=== PATIENT | female | born 1980 | race Caucasian/White ===

== ENCOUNTER 2024-06-13 06:01 | Day surgery (SDC) | payer BC, SELFPAY ==
[2024-06-13] VITALS (14 sets, daily range): BP systolic 100–124; BP diastolic 58–85; PULSE 58–88; RESP 16–18; TEMP 36.2–36.9; O2SAT 98–100; BMI 25.7
--- OUTSIDE RECORDS SUMMARY | 2024-06-13 06:03 | XMS_ITS | Clinical Summary ---
[facility] Organization [facility] Address [address] [place] [address] Care Team Providers Care Historiography Teacher Name Role Phone Tiffani Lora MD Primary Care Provider Source Comments You are receiving this document as you are listed as the primary care provider,follow-up provider, or the patient has been referred to you for consultation.This is in compliance with the Medicare and[facility] EHR Incentive Program,which states Providers who transition their patient to another setting of careor provider of care or refers their patient to another provider of care shouldprovide summary care record for each transition of care or referral. Redu.us Allergies Active Allergy Reactions Criticality Noted Date Comments Cephalexin Hives High 05/08/2021 Penicillins Other, see comments 05/08/2021 Throat swelling Oxycodone-Acetaminophen Other, see comments flushing Sulfa Antibiotics Hives High 05/08/2021 Medications Medication Sig Dispensed Refills Start Date End Date Status loratadine (CLARITIN) 10 MG tablet Take 1 Tablet (10 mg) by mouth daily as needed. Active Immunizations Name Administration Dates Next Due Flu Vac (3+ yrs) 03/20/2013,02/09/2012 Flu Vac Preserv Free (3+yrs) 02/16/2011 Influenza IIV4 (Quadrivalent ) 0.5mL (03288) 03/16/2022,02/20/2021,02/16/2019, 018,01/21/2017,04/01/2015,01/22/2014 MMR 03/07/2017 Pfizer Monovalent 12+ Purple Top 11/18/2020,10/02 Tdap 01/07/2017,06/12/2013 Social History Tobacco Use Types Packs/Day Years Used Date Smoking Tobacco: Never Assessed Sex and Gender Information Value Date Recorded Sex Assigned at Not on file Gender Identity Not on file Sexual Orientation Not on file Last Filed Vital Signs Vital Sign Reading Time Taken Comments Blood Pressure 111/77 05/08/2021 1:09 PM FILING AND POLISHING SUPERVISOR Pulse 82 05/08/2021 1:09 PM FILING AND POLISHING SUPERVISOR Temperature 36.5 C (97.7 F) 03/16/2022 3:10 PM FILING AND POLISHING SUPERVISOR Respiratory Rate 20 05/08/2021 1:09 PM FILING AND POLISHING SUPERVISOR Oxygen Saturation 100% 05/08/2021 1:09 PM FILING AND POLISHING SUPERVISOR Inhaled Oxygen Concentration - - Weight - - Height - - Body Mass Index - - Plan of Treatment Health Maintenance Due Date Last Done Comments Cervical Cancer Screening Due 1982 Hep C Screening (Preventive Services) 1982 Mammogram 1982 HIV Screening (Preventive Services) 1998 Adult Preventive Visit 2000 HepB (1) 2001 COVID-19 Vaccine (3 - season) 2024 11/18/2020, 10/28/2020 Influenza (#1) 2024 03/16/2022, 02/01, 02/16/2019, Additional history exists DTaP/Tdap/Td (3 - Tdap) 01/07/2027 01/07/2017, 06/12 Zoster/Shingles (1 of 2) 2032 HPV Vaccine Aged Out No longer eligi ble based on patient's age to complete this topic HepA Aged Out No longer eligi ble based on patient's age to complete this topic Hib Aged Out No longer eligi ble based on patient's age to complete this topic IPV (Polio) Aged Out No longer eligi ble based on patient's age to complete this topic MCV4 Aged Out No longer eligi ble based on patient's age to complete this topic Pneumococcal Aged Out No longer eligi ble based on patient's age to complete this topic Care Teams Historiography Teacher Relationship Specialty Start Date End Date Tiffani Lroa MD [address] [place] [address] PCP - General Family Practice 05/08/21
--- OUTSIDE RECORDS SUMMARY | 2024-06-13 06:03 | XMS_ITS | Clinical Summary ---
Author Organization [facility] Address [place], [place] [address] Care Team Providers Care Power Supply Engineer Name Role Phone Tiffani Lora MD Unavailable + Tiffani Lora MD Primary Care Prov ider Allergies Active Allergy Reactions Criticality Noted Date Comments Cephalexin Confusion 12/13/2006 Penicillins 09/29/2006 tightness in throat Oxycodone-Acetaminophen Headache Head Roberson Sulfa (Sulfonamide Antibiotics) Hives 09/29/2006 Medications loratadine (CLARITIN) 10 mg tablet Take 1 tablet by mouth once daily. 0 7 Active albuterol HFA (PRO-AIR; VENTOLIN; PROVENTIL) 90 mcg/actuation inhalerIndicatio ns:Post-viral reactive airway disease,Cervical cancer screening Inhale 2 Puffs by mouth 4 times daily if needed for Shortness Of Breath. 3 Each 3 5 Active doxycycline monohydrate 100 mg capsuleIndicatio ns:Paronychia of finger of right hand Take 1 Capsule (100 mg) by mouth two times daily for 7 days. 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 09/29/2006 Resolved Problems Problem Noted Date Diagnosed Date Resolved Date 08/17/2016 06/06/2024 Overview (02/18/2017): INDICATION: Dating of the . Ultrasound 08/17/2016 Technique: First trimester OB ultrasound. Findings: Living intrauterine Garica with a heart rate of 146 beats per minute. Ultrasound age 11 weeks 5 days with CLAUDIA of 08/31/2016. The left ovary measures 3.0 x 1.8 x 1.5 cm and demonstrates a probable corpus luteum cyst measuring 1.9 x 1.8 x 1.4 cm the right ovary which measures 2.5 x 1.3 x 1.2 cm demonstrates a normal sonographic appearance. Impression: Living intrauterine with ultrasound age 11 weeks 5 days and CLAUDIA of 03/03/2017. Estimated Date of Delivery: 03/05/17 Patient's last menstrual period was 05/29/2016 (exact date). Last Tdap- 01/07/17 Last Flu vaccine- 01/21/17 Allergies Allergen Reactions Keflex [Cephalexin] Confusion Pcn [Penicillins] tightness in throat Percocet [Oxycodone-Acetaminophen] Headache Head Roberson Sulfa (Sulfonamide Antibiotics) Hives Obstetric History T2 L2 SAB0 TAB0 Ectopic0 Multiple0 Live Births1 # Outcome Date GA Lbr Jeremy/2nd Weight Sex Delivery Anes PTL Lv 4 Current 3 Term 09/09/13 F Vag N MAI Name: Ghislaine 2 SAB 08/2012 1 Term 12/30/10 M Vag Name: Karson Component Latest Ref Rng & Units 08/10/2016 08/10/2016 08/10/2016 2:28 PM 2:28 PM 2:28 PM HEMOGLOBIN 12.0 - 16.0 g/dL 13.6 MCV 80 - 100 fL 93 RUBELLA IGG ANTIBODY Equivocal 0.92 (L) ANTIBODY SCREEN Negative Negative SPECIMEN EXPIRATION DATE/TIME 08/13/16 23:59 CHLAMYDIA PROBE N GONORRHOEAE PROBE GLUCOSE,GESTATIONAL 65 - 139 mg/dL PATIENT STATUS HIV-1/HIV-2 ANTIBODY Non-Reactive Non-Reactive HBSAG Nonreactive Nonreactive TREPONEMA PALLIDUM Negative Negative HEMOGLOBIN A1C MONITORING (POCT) <=6.4 % 5.0 LYME SCREEN W/REFLEX WEST BLOT Negative Negative Component Latest Ref Rng & Units 08/10/2016 11/30/2016 3:32 PM HEMOGLOBIN 12.0 - 16.0 g/dL MCV 80 - 100 fL RUBELLA IGG ANTIBODY ANTIBODY SCREEN Negative SPECIMEN EXPIRATION DATE/TIME CHLAMYDIA PROBE Negative N GONORRHOEAE PROBE Negative GLUCOSE,GESTATIONAL 65 - 139 mg/dL 117 PATIENT STATUS FASTING HIV-1/HIV-2 ANTIBODY Non-Reactive HBSAG Nonreactive TREPONEMA PALLIDUM Negative HEMOGLOBIN A1C MONITORING (POCT) <=6.4 % LYME SCREEN W/REFLEX WEST BLOT Negative Component Latest Ref Rng & Units 02/04/2017 Culture No Group B Streptococcus isolated. Past Medical History: Diagnosis Date ALLERGIC RHINITIS /Food Allergies to sugar, dairy intol. 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 4th Problems (from 08/10/16 to present) No problems associated with this episode. ABDIAS Cuellar.....02/02/2017 2:41 PM Assessment & Plan (02/04/2017 10:59 AM CDT): [facility] Please call MD when patient calls she is coming in. Signed electronically by Natasha Lora MD ......... 10:58 AM 02/04/2017 Assessment & Plan (01/21/2017 10:38 AM CDT): Tdap 01/07/2017 Flu shot 01/21/2017 Supervision of other normal 01/17/2013 05/22/2014 Overview (08/14/2013): Flu shot 03/20/2013 DTAP 06/12/13 Group B strep Negative Supervision of normal first 07/14/2010 09/16/2012 Encounters Date Type Department Care Team Description 06/09/2024 8:10 AM STEEL PICKLER Telemedicine [facility] [address] [place] [address] Lynette Moore PA Telehealth 06/09/2024 Travel 06/06/2024 7:00 AM STEEL PICKLER Office Visit [facility] [address] [place] [address] Tiffani Lora MD Anxiety; Preoperative Exam (DOS 06/13/24/Dr. Keita, Tubal ligation [facility]) 06/06/2024 Travel 06/02/2024 Travel 05/11/2024 9:00 AM STEEL PICKLER Office Visit [facility] [address] [place] [address] Tiffani Lora MD Physical (43 yo female) 05/11/2024 Travel 05/07/2024 Travel from Last 3 Months Immunizations Name Administration Dates Next Due AMB Influenza, IIV4 PF (=>6 mos Flulaval,Fluzone Fluarix)(Flu Clinic Only) 02/16/2019 Influenza, IIV3 (Age >=3 years) 03/20/20 13,02/09/2012,02/16/2011, 0,04/11/2008,02/24/2007 Influenza, IIV4 02/20/2021, 8,01/21/2017, 5,01/22/2014 MMR 03/07/2017 Td (Age >=7 Years) 05/03/1997 Tdap 01/07/2017,06/12/2013,02/24/2007 Family History Medical History Relation Name Comments Good Health Brother Diabetes Father Hyperlipidemia Father Other Maternal Grandfather old age Heart Disease Maternal Grandmother NE Diabetes Maternal Uncle one uncle wit h diabetes, one cousin, both with type II Cancer Mother melanoma Diabetes Other 1 another cousin, with type I Diabetes Paternal Aunt Heart Disease Paternal Grandfather CHF Other Paternal Grandmother old age Good Health Sister 1 Good Health Sister 2 Relation Name Status Comments Brother Father Maternal Grandfather Maternal Grandmother Maternal Uncle Mother Other 1 Other 2 cousin Paternal Aunt Paternal Grandfather Paternal Grandmother Sister 1 Sister 2 Social History Tobacco Use Types Packs/Day Years Used Date Smoking Tobacco: Never Smokeless Tobacco: Never Tobacco Cessation:Counseling Given: Yes Alcohol Use Standard Drinks/Week Comments Yes 0 (1 standard drink = 0.6 oz pur e alcohol) PHQ-2 Answer Date Recorded PHQ-2 TOTAL SCORE 0 05/11/2024 Social Connections Answer Date Recorded Do you often feel lonely or isolated from those around you? 0 05/07/2024 Financial Resource Strain Answer Date R ecorded Difficulty of Paying Living Expenses 3 05/07/2024 Difficulty of Paying Living Expenses Not on file 05/07/2024 Food Insecurity Answer Date Recorded Do you worry your food will run out before you are able to buy more? 1 05/07/2024 Transportation Needs Answer Date Record ed Does lack of transportation keep you from medica l appointments? 1 05/07/2024 Does lack of transportation keep you from work, meetings or getting things that you need? 1 05/07/2024 Housing Stability Answer Date Recorded What is your housing situation today? 1 05/07/2024 Utilities Answer Date Recorded Do you have trouble paying f or utilities (for example, heat, electricity, water, phone)? 1 05/07/2024 Comments No Sex and Gender Information Value Date Recorded Sex Assigned at Not on file Legal Sex Female 5:40 AM STEEL PICKLER Gender Identity Not on file Sexual Orientation Not on file Obstetrics History Para Term AB IAB SAB Ectopic Multiple Livin g Live Births 4 3 3 0 1 0 1 0 0 2 1 Date Outcome GA Total Labor Labor/2nd/3rd Weight Sex Type Anes PTL Mai A1 A5 Name Clin 12/30 Term M Vag Karson 09/19 13 SAB 09/09 Term F Vag N Living Ghislaine 03/06 Term 40w 1d Last Filed Vital Signs Vital Sign Reading Time Taken Comments Blood Pressure 103/64 06/06/2024 7:05 AM STEEL PICKLER Pulse 74 06/06/2024 7:05 AM STEEL PICKLER Temperature 36.6 C (97.9 F) 06/06/2024 7:05 AM STEEL PICKLER Respiratory Rate 16 04/29/2017 10:29 AM STEEL PICKLER Oxygen Saturation 100% 06/06/2024 7:05 AM STEEL PICKLER Inhaled Oxygen Concentration - - Weight 67.6 kg (149 lb) 06/06/2024 7:05 AM STEEL PICKLER Height 162.6 cm (5' 4) 06/06/2024 7:05 AM STEEL PICKLER Body Mass Index 25.58 06/06/2024 7:05 AM STEEL PICKLER Plan of Treatment Health Maintenance Due Date Last Done Comments Pneumococcal series for age 6-49 (1 of 2 - PCV) 2001 COVID-19 vaccine series ( - season) 2024 11/18/2020, 10/28/2020 Influenza for age 9-49 01/02/2024 , 02/16/2019, 03/07/2018, Additional history exists Depression screening for age 12+ 05/11/2025 05/11/2024, 06/05/2021, 08/20/2020, Additional history exists BMI (ht and wt on same day) for age 18+ 06/06/2025 06/06/2024, 05/11/2024, 05/09/2021, Additional history exists Tetanus booster 01/07/2027 01/07/2017, 06/03, 02/24/2007, Additional history exists Pap test for age 21-65 05/11/2029 , 05/11/2024, 03/13/2019, Additional history exists HIV for age 15-65 Completed 08/10/2016, , 05/08/2010 Tdap Completed 01/07/2017, 06/03, 02/24/2007 Hepatitis C screening for ag e 18-79 Completed 05/11/2024 Procedures Procedure Name Priority Date/Time Associated Diagnosis Comments [employer]RI[employer] WORKER THIN PREP PAP SCREEN IMAGED Routine 05/11/2024 10:02 AM STEEL PICKLER Screening for cervical cancer HPV HIGH RISK Routine 05/11/2024 10:02 AM STEEL PICKLER Screening for cervical cancer GLUCOSE, RANDOM Routine 05/11/2024 9:53 AM STEEL PICKLER Screening for diabetes mellitus LIPID PANEL W REFLEX MEASURED LDL Routine 05/11/2024 9:53 AM STEEL PICKLER Screening for lipoid disorders ANTI HCV Routine 05/11/2024 9:53 AM STEEL PICKLER Need for hepatitis C screening test VITAMIN D 25 (DEFICIENCY) Routine 05/11/2024 9:53 AM STEEL PICKLER Encounter for vitamin deficiency screening ANTI HIV 1/2 Routine 08/10/2016 2:28 PM CDT 11 weeks gestation of from Last 3 Months or Most Recently Relevant to Health Maintenance Results * [employer] WORK[employer] THIN PREP PAP SCREEN IMAGED [[id number]] (05/11/2024 10:02 AM STEEL PICKLER) Case Report Gynecologic Cytology Report Case: [id number] Authorizing Provider: Tiffani Lora Collected: 05/11/2024 Rose Marie Chung MD Ordering Location: [facility] Received: 05/11/[address] [place] [address] First Screen: Chris Olguin Specimen: [employer] ThinPrep Vial Screening, Cervical 05/19/2024 1:35 PM STEEL P[employer]ER [facility] INTERPRETATION/ RESULT NEGATIVE FOR INTRAEPITHELIAL LESION OR MALIGNANCY (NIL) (none) 05/19/2024 1:35 PM STEEL PICKLER [facility] LABORATORY-C ENTRAL LABORATORY IMEN ADEQUACY Satisfactory for evaluation Endocervical component present 05/19/2024 1:35 PM STEEL PICKLER [facility] LABORATORY-C ENTRAL LABORATORY HPV REQUEST HPV and PAP 05/19/2024 1:35 PM STEEL PICKLER [facility] LABORAT[facility]-C ENTRAL LABORATORY Date of LMP 04/27/2024 05/19/2024 1:35 PM STEEL PICKLER [facility]ORAT[facility]-C ENTRAL LABORATORY Last Pap Date 03/13/19 05/19/2024 1:35 PM [employer]ER [facility] Last Pap Result NIL 1:35 PM STEEL PICKLER [facility] LABORATORY Abnormal Pap or [place] Bx in last 5 years No 05/19/2024 1:35 PM STEEL PICKLER [facility] Menstrual Status Regular Periods 05/19/2024 1:35 PM STEEL PICKLER [facility] [place] Bx Done Today No 05/19/2024 1:35 PM STEEL PICKLER [facility] Additional Information None given 05/19/2024 1:35 PM STEEL PICKLER [facility] Comment: Cytology is screened at [facility] - [address], [place] [address] and [facility] - [address], [place] [address] and [facility] - [address] [place] [address] Interpreted at [facility] - [address], [place] [address] Automated Review Successful 05/19/2024 1:35 PM STEEL PICKLER [facility] Comment:Specimen processed s uccessfully by automated animal skinner device, ThinPrep Imaging System, [employer] ANCILLARY TESTING [employer] HPV Ordered, Please see separate report 05/19/2024 1:35 PM STEEL PICKLER [facility] Note The pap test is a screening technique, not a diagnostic procedure. It is used primarily to screen for squamous cancers and precursor lesions. Published studies have shown that it is subject to both false negative and false positive results. The pap test should not be used as the sole means to diagnose or exclude pre-malignant and malignant lesions. 05/19/2024 1:35 PM STEEL PICKLER [facility] Other (Cervical) Non-Blood / Unknown 05/11/2024 10:02 AM STEEL PICKLER 05/11/2024 10:02 AM STEEL PICKLER Tiffani Lora MD PATHOLOGY/CYTOLOGY Final Result [facility] [address] [place] [address], [place] * HPV HIGH RISK (05/11/2024 10:02 AM STEEL PICKLER) TYPE 16 Negative Negative 05/15/2024 3:09 PM STEEL PICKLER [facility] TYPE 18 Negative Negative 05/15/2024 3:09 PM STEEL PICKLER [facility] OTHER HIGH RISK TYPES Negative Negative 05/15/2024 3:09 PM STEEL PICKLER [facility] Other (Cervical) Non-Blood / Unknown 05/11/2024 10:02 AM STEEL PICKLER 05/11/2024 5:09 PM STEEL PICKLER Narrative [facility] - 05/15/2024 3:09 PM STEEL PICKLER HPV types 16, 18, 31, 33, 35, 39, 45, 51, 52, 56, 58, 59, 66 and 68 DNA were undetectable or below the pre-set threshold. Methodology: [employer] [place] 4800 HPV Test Tiffani Lora MD MICROBIOLOGY nal Result [facility] [address] [place] [id number], * (ABNORMAL) LIPID PANEL W REFLEX MEASURED LDL (05/11/2024 9:53 AM STEEL PICKLER) CHOLESTEROL, TOTAL 207(H) <200 mg/dL [facility] HDL CHOLESTEROL 91 > OR = 50 mg/dL [facility] Her[facility] TRIGLYCERIDES 59 <150 mg/dL [facility] Her[facility] LDL-CHOLESTEROL 102(H) mg/dL (calc) [facility] Her[facility] Comment: Reference range: <100 Desirable range <100 mg/dL for primary prevention; <70 mg/dL for patients with CHD or diabetic patients with > or = 2 CHD risk factors. LDL-C is now calculated using the Mata calculation, which is a validated novel method providing better accuracy than the Friedewald equation in the estimation of LDL-C. All PATINO et al. GENEVA. 2013;310(19): 4355-9986 (http://education.HearMeOut.CRMnext/faq/QHJ443) CHOL/HDLC RATIO 2.3 <5.0 (calc) [facility] Singhe NON HDL CHOLESTEROL 116 <130 mg/dL (calc) [employer] bella Herrera Comment: For patients with diabetes plus 1 major ASCVD risk factor, treating to a non-HDL-C goal of <100 mg/dL (LDL-C of <70 mg/dL) is considered a therapeutic option. Blood BLOOD SPECIMEN / Unknown 05/11/2024 9:53 AM STEEL PICKLER 05/11/2024 9:53 AM STEEL PICKLER Tiffani Lora MD CHEMISTRY Fi nal Result Performing Organization Address [facility] de Phone Number [facility] [address] [address], [employer] [address] * VITAMIN D 25 (DEFICIENCY) (05/11/2024 9:53 AM STEEL PICKLER) VITAMIN D,25-OH,TOTAL,IA 47 30 - 100 ng/mL [facility] bella Singhe Comment: Vitamin D Status 25-OH Vitamin D: Deficiency: <20 ng/mL Insufficiency: 20 - 29 ng/mL Optimal: > or = 30 ng/mL For 25-OH Vitamin D testing on patients on D2-supplementation and patients for whom quantitation of D2 and D3 fractions is required, the QuestAssureD(TM) 25-OH VIT D, (D2,D3), LC/MS/MS is recommended: order code 14373 (patients >2yrs). See Note 1 Note 1 For additional information, please refer to http://education.HearMeOut.CRMnext/faq/AXZ794 (This link is being provided for informational/ educational purposes only.) Blood BLOOD SPECIMEN / Unknown 05/11/2024 9:53 AM STEEL PICKLER 05/11/2024 9:53 AM STEEL PICKLER Tiffani Lora MD SEND OUTS Fi nal Result Performing Organization Address [facility]/ZIP Co de Phone Number [facility] [address] [place] [address], [facility] [address] [place] [address] * GLUCOSE, RANDOM (05/11/2024 9:53 AM STEEL PICKLER) Pathologist [facility] GLUCOSE, RANDOM 101 <140 mg/dL [facility] Blood BLOOD SPECIMEN / Unknown 05/11/2024 9:53 AM STEEL PICKLER 05/11/2024 9:53 AM STEEL PICKLER Tiffani Lora MD CHEMISTRY Fi nal Result [facility] [address] [address], [facility] [address] [place] [address] * ANTI HCV (05/11/2024 9:53 AM STEEL PICKLER) [facility] HEPATITIS C ANTIBODY NON-REACTI VE NON-REACT MELVIN [employer] Comment: HCV antibody was non-reactive. There is no laboratory evidence of HCV infection. In most cases, no further action is required. However, if recent HCV exposure is suspected, a test for HCV RNA (test code 67323) is suggested. For additional information please refer to http://education.Sookasa/faq/NKR07m6 (This link is being provided for informational/ educational purposes only.) Blood BLOOD SPECIMEN / Unknown 05/11/2024 9:53 AM STEEL PICKLER 05/11/2024 9:53 AM STEEL PICKLER Tiffani Lora MD SEND OUTS Fi nal Result [facility] [address] [place] [address], [facility] [address] [place] [address] * ANTI HIV 1/2 (08/10/2016 2:28 PM CDT) HIV-1/HIV-2 ANTIBODY Non-Reacti ve Non-Reacti ve 08/10/2016 9:05 PM CDT [facility] TRAL LABORATORY Blood BLOOD SPECIMEN / Unknown Venipuncture / Unknown 08/10/2016 2:28 PM CDT 08/10/2016 2:28 PM CDT Narrative [facility]-CENTRAL LABORATORY - 08/10/2016 9:05 PM CDT HIV-1 p24 and HIV-1/HIV-2 Ab not detected us Tiffani Lora MD SEND OUTS Fi nal Result [facility] [address] [place] [address], from Last 3 Months or Most Recently Relevant to Health Maintenance Insurance Advance Directives * Full Code (Latest Code Status on File) Date Activated Date Inactivated Comments 08/19/2015 8:42 AM 08/20/2015 12:04 PM Care Teams Power Supply Engineer Relationship Specialty Start Date End Date Tiffani Lora MD [facility] [address] PCP - General Family Practice 02/28/19 Tiffani Lora MD [address] [place] [address] Family Practice 05/09/15
[2024-06-13 06:27] LABS: Ur HCG Qualitative* Negative (Negative)
[2024-06-13] MEDS: 0.9 % SODIUM CHLORIDE 500 ML 500 ML 100 ML IV (06:30)
[2024-06-13] MEDS: SODIUM CHLORIDE 0.9 % (FLUSH) 10 ML SYRINGE IVF (06:30)
--- NOTE | 2024-06-13 07:18 | W.PM.GYNPROC ---
Procedure Note Date of procedure: 06/13/24 Will [facility] bill your pro fee for this procedure?: Yes Pre-op diagnosis: 1. Undesired fertility Post-op diagnosis: 1. Undesired fertility Procedure: Laparoscopic bilateral salpingectomies Anesthesia: GETA Complications: None Surgeon: Ethel Keita MD Estimated blood loss (mL): 10 Urine Output (mL): 50 Pathology: specimen obtained, sent to pathology (Bilateral fallopian tubes) Condition: stable Disposition: PACU Findings: Normal-appearing retroverted uterus, normal fallopian tubes, small paratubal cyst associated with the left fallopian tube, normal ovaries bilaterally containing small follicle cysts, normal appendix, normal liver, normal gallbladder. Procedure Description: After obtaining informed consent, the patient was taken to the operating room where general anesthesia was obtained without difficulty. She was prepared and draped in the normal sterile fashion in the low dorsal lithotomy position. A Leora catheter was inserted into the bladder and left to gravity drainage. A medium Graves open-sided speculum was introduced into the vagina. The cervix was visualized and grasped along its anterior lip with a single toothed tenaculum. A UClass uterine manipulator was placed without difficulty. The tenaculum and speculum were removed. I then changed gloves and my attention was turned to the abdomen. The inferior aspect of the umbilical fold was injected with 0.25% Marcaine plain. A 5 mm transverse incision was then made within the umbilical fold using a scalpel. The subcutaneous tissues were bluntly dissected with a Temi clamp to the fascia. The fascia was grasped with 2 small Krishna clamps and elevated. Diego scissors were used to make a small defect in the fascia between the Krishna clamps. A direct entry technique was used to place a 5 mm laparoscopic port with CO2 gas set to a 5 mmHg. The trocar was removed leaving the sleeve in place. The CO2 gas flow was turned to high flow to achieve pneumoperitoneum. The 5 mm laparoscope was used then to carefully inspect the abdomen and pelvis with findings noted above. Pictures were taken for documentation purposes. The patient was placed in Trendelenburg positioning. Two additional 5 mm ports were placed in the right and left lower quadrants under direct visualization after first anesthetizing the skin and fascia with 0.25% Marcaine plain. The uterus was elevated using the uterine manipulator. The bowels were gently pushed from the pelvis cephalad. The fallopian tubes were then each identified to the fimbrial ends. The left fallopian tube was elevated with a graspers. The LigaSure bipolar electrocautery cutting device was used to dissect the fallopian tube from the ovary, the mesosalpinx, and the left uterine cornua. The small paratubal cyst was excised with the tube. Excellent hemostasis was visualized. The tube was removed through the right lower quadrant port site. The right fallopian tube was elevated, excised with the LigaSure, and removed from the abdomen in a similar fashion. All instruments were then removed under direct visualization. Pneumoperitoneum was allowed to escape. The skin at all 3 port sites was closed in a subcuticular fashion with 4-0 Vicryl. Surgical glue was then placed over the incisions. The uterine manipulator and Loera catheter were removed. The patient tolerated the procedure well. Sponge, lap, and needle counts were correct x2. The patient was taken to the recovery room awake and in stable condition. She received 200 mg IV doxycycline in the operating room just prior to the procedure, as she was currently being treated for a subcutaneous infection of her finger with doxycycline and had not taken her morning dose.
[2024-06-13] MEDS: DOXYCYCLINE HYCLATE 200 MG in 0.9 % SODIUM CHLORIDE 250 ml 250 ML 250 MG IVPB (07:30)
[2024-06-13] MEDS: BUPIVACAINE 0.25% 30 ML 5 ML INJECTION (08:10)
--- NOTE | 2024-06-13 08:26 | W.ANESCHARGE ---
Anesthesia Charges Start Date/Time Anesthesia Start Date: 06/13/24 Anesthesia Start Time: 07:19 Stop Date/Time Anesthesia Stop Date: 06/13/24 Anesthesia Stop Time: 08:25 Coding CPT Codes CPT Codes: ANESTH SURG LOWER ABDOMEN - 44057 ([id number]) P2 - PATIENT W/MILD SYST DISEASE, QK - CAR PACKER 2-4 CNCRNT ANES PROC, QX - PRODUCTION MACHINE TENDER SVC W/ MD MED DIRECTION
[2024-06-13] MEDS: fentaNYL 100 MCG/2 ML inj 50 MCG IVP ×2 (08:43→08:49)
[2024-06-13] MEDS: ACETAMINOPHEN 500 MG TABLET 1000 MG PO (09:37)
--- NOTE | 2024-06-13 10:01 | P.ANES_ITS ---
Anesthesia Charges Start Date/Time Anesthesia Start Date: 06/13/24 Anesthesia Start Time: 07:19 Stop Date/Time Anesthesia Stop Date: 06/13/24 Anesthesia Stop Time: 08:25 Coding CPT Codes CPT Codes: ANESTH SURG LOWER ABDOMEN - 61733 ([id number]) QK - ADDICTION THERAPIST 2-4 CNCRNT ANES PROC, QX - UNDER SEAL OPERATOR SVC W/ MD MED DIRECTION, P2 - PATIENT W/MILD SYST DISEASE
--- NOTE | 2024-06-13 10:01 | W.ANESCHARGE ---
Anesthesia Charges Start Date/Time Anesthesia Start Date: 06/13/24 Anesthesia Start Time: 07:19 Stop Date/Time Anesthesia Stop Date: 06/13/24 Anesthesia Stop Time: 08:25 Coding CPT Codes CPT Codes: ANESTH SURG LOWER ABDOMEN - 07583 ([id number]) QK - PIPE LINE GAUGER 2-4 CNCRNT ANES PROC, QX - RECREATION COUNSELOR SVC W/ MD MED DIRECTION, P2 - PATIENT W/MILD SYST DISEASE
== END 2024-06-13 10:40 | disposition home or self-care (01) ==
PROVIDERS: PCP Family Medicine; Visit Provider Obstetrics & Gynecology
PROC: (CPT 58661; principal; 2024-06-13 07:15)
DX: Z30.2 Encounter for sterilization (principal); N83.8 Other noninflammatory disorders of ovary, fallopian tube and broad ligament; N83.02 Follicular cyst of left ovary; N83.01 Follicular cyst of right ovary
CPT/HCPCS: 58661; 00840; 81025; 88302; A9270; J0330; J0665; J1100; J1630; J1885; J2250; J2405; J2704; J3010; J3490; J7030; J7050